=== PATIENT | male | born 2000 | race Hispanic/Latino ===

== ENCOUNTER 2024-05-23 20:26 | Emergency (ER) | payer SELFPAY ==
[~2024-05-23] VITALS: Ht 182.9 cm; Wt 136.1 kg
[2024-05-23 20:51] VITALS: PULSE 86; RESP 16; TEMP 98.6; O2SAT 99
[2024-05-23] MEDS ORDERED: BACTRIM DS TAB1 EACH PO (21:14)
[2024-05-23] MEDS ORDERED: DOXYCYCLINE HY100 MG PO (21:14)
== END 2024-05-23 21:17 | disposition home or self-care (01) ==
LOC: ER 21:09
DX: L03.116 Cellulitis of left lower limb (principal); I10 Essential (primary) hypertension; E11.9 Type 2 diabetes mellitus without complications; F17.210 Nicotine dependence, cigarettes, uncomplicated
CPT/HCPCS: 99283